=== PATIENT | male | born 1990 | race Caucasian/White ===

== ENCOUNTER 2020-07-24 12:19 | Emergency (ER) | payer BC ==
[~2020-07-24] VITALS: Ht 185.4 cm; Wt 109.2 kg
[2020-07-24 12:40] VITALS: BP 129/61
[2020-07-24] MEDS ORDERED: VALA10002 PO (14:48)
[2020-07-24] MEDS ORDERED: GABA300C PO (14:48)
== END 2020-07-24 14:59 | disposition home or self-care (01) ==
LOC: ER 12:20
DX: B02.9 Zoster without complications (principal)
CPT/HCPCS: 99283